=== PATIENT | female | born 1970 | race Caucasian/White ===

== ENCOUNTER 2023-08-26 16:35 | Emergency (ER) | payer BC, OTHER ==
[~2023-08-26] VITALS: Ht 160 cm; Wt 83.9 kg
[2023-08-26 16:49] VITALS: BP_SYST 114; PULSE 74; RESP 16; TEMP 97.6; O2SAT 98
[2023-08-26] MEDS ORDERED: IBUP-1969 PO (19:09)
[2023-08-26] MEDS ORDERED: DICL20GE TP (19:09)
[2023-08-26 19:33] VITALS: BP_SYST 114; PULSE 74; RESP 16; TEMP 97.6; O2SAT 98
== END 2023-08-26 19:33 | disposition home or self-care (01) ==
LOC: SED 16:35
DX: R51.9 Headache, unspecified (principal); Z88.5 Allergy status to narcotic agent
CPT/HCPCS: 70450-TC; 99284

== ENCOUNTER 2023-10-16 00:12 | Emergency (ER) | payer OTHER ==
[~2023-10-16] VITALS: Ht 160 cm; Wt 74.8 kg
[~2023-10-16 00:12] MED LIST: DICL20GE TP; IBUP-1969 PO
[2023-10-16 00:17] VITALS: BP_SYST 113; PULSE 106; RESP 16; TEMP 98; O2SAT 98
[2023-10-16] MEDS: ALBUTEROL SULFATE 0.083% 2.5 MG/3 ML VIAL.NEB INH ONE (00:57)
[2023-10-16] MEDS: predniSONE 20 MG TABLET PO ONE (01:07)
[2023-10-16] MEDS ORDERED: AZIT500T10 PO (02:37)
[2023-10-16] MEDS ORDERED: METH-776 PO (02:37)
[2023-10-16] MEDS ORDERED: ALBMDI INH (02:37)
[2023-10-16 02:40] VITALS: BP_SYST 113; PULSE 106; RESP 16; TEMP 98; O2SAT 98
== END 2023-10-16 02:41 | disposition home or self-care (01) ==
LOC: SED 00:12
DX: J20.9 Acute bronchitis, unspecified (principal); F32.9 Major depressive disorder, single episode, unspecified
CPT/HCPCS: 99283; 94640; J7512